=== PATIENT | female | born 1990 ===

== ENCOUNTER → 2023-03-30 | Outpatient (CLI) | payer BC ==
[2023-04-01 15:10] LABS: CHLAMYDIA TRACHOMATIS, NAA Negative (Negative)
== END | disposition home or self-care (01) ==
LOC: LAB SHORT 12:56 → LAB 12:56
PROVIDERS: Obstetrics & Gynecology
DX: Z11.3 Encounter for screening for infections with a predominantly sexual mode of transmission (principal)
CPT/HCPCS: 87491; 87591

== ENCOUNTER → 2023-09-11 | Outpatient (CLI) | payer BC | LOC: LAB 14:27 → LAB SHORT 14:27 | PROVIDERS: Family Medicine | DX: O09.93 Supervision of high risk pregnancy, unspecified, third trimester (principal); Z3A.00 Weeks of gestation of pregnancy not specified | CPT/HCPCS: 82731; 87081; 87150 ==

== ENCOUNTER 2023-09-29 03:29 | Inpatient (IN) | payer BC ==
[2023-09-29] VITALS (24 sets, daily range): BP systolic 106–143; BP diastolic 56–85
[~2023-09-29] VITALS: Ht 170.2 cm; Wt 143.1 kg
[2023-09-29 06:40] LABS: BASOPHILS ABSOLUTE AUTO 0.06 K/mm3 (0.00-0.23); BASOPHILS PERCENT AUTO 0 % (0-2); EOSINOPHILS PERCENT AUTO 1 % (0-6); Hematocrit 41.7 % (33.0-51.0); Hemoglobin 14.2 g/dL (11.5-16.0); IMMATURE GRAN ABSOLUTE AUTO 0.08 K/mm3 (0.00-0.10); IMMATURE GRAN PERCENT AUTO 1 % (0-1); LYMPHOCYTES ABSOLUTE AUTO 3.38 K/mm3 (0.84-5.20); LYMPHOCYTES PERCENT AUTO 24 % (21-46); MONOCYTES ABSOLUTE AUTO 0.83 K/mm3 (0.16-1.47); MONOCYTES PERCENT AUTO 6 % (4-13); Mean Corpuscular HGB 26.3 pg (26.0-34.0); Mean Corpuscular HGB Conc 34.1 g/dL (31.5-36.5); Mean Corpuscular Volume 77 fL (80-100); Mean Platelet Volume 9.6 fL (9.1-12.4); NEUTROPHILS ABSOLUTE AUTO 9.75 K/mm3 (1.96-9.15); NEUTROPHILS PERCENT AUTO 69 % (41-73); Platelet Count 319 K/mm3 (150-400); RDW Coefficient Variation 13.7 % (11.7-14.2); RDW Standard Deviation 38.4 fL (35.1-46.3); Red Blood Cell Count 5.39 M/mm3 (3.80-5.20)
[2023-09-29] MEDS ORDERED: ASPI81CH PO (07:42)
[2023-09-29] MEDS ORDERED: OMEP20ER PO (07:43)
[2023-09-29] MEDS ORDERED: ACET500 PO (07:43)
[2023-09-29] MEDS ORDERED: LAMO100 PO (07:44)
[2023-09-29 09:10] LABS: Albumin, Blood 2.3 g/dL (3.4-5.0); Albumin/Globulin Ratio 0.6 (0.8-1.8); Bilirubin, Total 0.3 mg/dL (0.1-1.0); Bun/Creatinine Ratio 12.7 (12.0-20.0); Calcium, Blood 8.7 mg/dL (8.5-10.1); Creatinine, Blood 0.55 mg/dL (0.40-1.00); Globulin, Blood 4.1 g/dL (2.2-4.0); Potassium, Blood 3.7 mmol/L (3.5-5.5); Total Protein, Blood 6.4 g/dL (6.4-8.2)
[2023-09-29 09:15] LABS: Creatinine, Urine Random 39.4 mg/dL (27.00-270.00); Protein, Urine Random 8.9 mg/dL (0.0-11.9); Protein/Creat Ratio, Ur Random 0.2
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
[2023-09-29 18:32] LABS: PCO2 Cord - Arterial 84.2 mmHg (40-50); PO2 Cord - Arterial 19.7 mmHg (16-20); pH Cord - Arterial 7.09 (7.28-7.35)
[2023-09-29 18:33] LABS: pH Umbilical Cord - Venous 7.15 (7.26-7.35)
[2023-09-29 18:34] LABS: PCO2 Cord - Venous 78.6 mmHg (40-50); PO2 Cord - Venous > 16 mmHg (28-32)
--- NOTE | 2023-09-29 18:51 | NUR ---
09/29/231850 Saundra Fenton VIGOROUS MALE BORN AT 1822 WITH APGARS 9/9. [address] DR AVALOS HAD DIFFICULTY WITH DELIVERING HEAD, HAD TO DO A SLIGHT T INCISION WITH VACUUM ATTEMPT WITH 3 PULLS AND 3 POP OFFS. CORD GASES GIVEN TO MILO PRESCOTT AND CORD BLOOD GIVEN TO NAVEED PAUL. DR AVALOS HAD BLADDER FILLED TO 200CC AND THEN DRAINED BACK INTO [place] BY ALL PAUL.
[2023-09-30 03:34] VITALS: BP 107/58
[2023-09-30 07:10] LABS: BASOPHILS ABSOLUTE AUTO 0.04 K/mm3 (0.00-0.23); BASOPHILS PERCENT AUTO 0 % (0-2); EOSINOPHILS ABSOLUTE AUTO 0.09 K/mm3 (0.00-0.68); EOSINOPHILS PERCENT AUTO 1 % (0-6); Hematocrit 33.4 % (33.0-51.0); Hemoglobin 11.3 g/dL (11.5-16.0); IMMATURE GRAN ABSOLUTE AUTO 0.07 K/mm3 (0.00-0.10); IMMATURE GRAN PERCENT AUTO 1 % (0-1); LYMPHOCYTES PERCENT AUTO 23 % (21-46); MONOCYTES ABSOLUTE AUTO 0.71 K/mm3 (0.16-1.47); MONOCYTES PERCENT AUTO 6 % (4-13); Mean Corpuscular HGB Conc 33.8 g/dL (31.5-36.5); Mean Corpuscular Volume 77 fL (80-100); Mean Platelet Volume 9.7 fL (9.1-12.4); NEUTROPHILS ABSOLUTE AUTO 8.59 K/mm3 (1.96-9.15); NEUTROPHILS PERCENT AUTO 70 % (41-73); Platelet Count 267 K/mm3 (150-400); RDW Coefficient Variation 13.7 % (11.7-14.2); RDW Standard Deviation 38.1 fL (35.1-46.3); Red Blood Cell Count 4.34 M/mm3 (3.80-5.20)
[2023-09-30 07:43] VITALS: BP 113/59
[2023-09-30 11:28] VITALS: BP 118/59
[2023-09-30 15:50] VITALS: BP 118/71
[2023-09-30 19:39] VITALS: BP 119/63
[2023-10-01 00:20] VITALS: BP 134/66
[2023-10-01 04:24] VITALS: BP 123/58
[2023-10-01 07:38] VITALS: BP 135/89
== END 2023-10-01 11:30 | disposition home or self-care (01) | DRG 787 ==
LOC: OBS 03:29 → BC 03:35 → OBS 05:48 → BC 05:52
PROVIDERS: Family Medicine; Obstetrics & Gynecology; ADMIT Obstetrics & Gynecology
PROC: 4A0HXCZ Measurement of Products of Conception, Cardiac Rate, External Approach (ICD-10-PCS; 2023-09-29)
PROC: 10D00Z1 Extraction of Products of Conception, Low, Open Approach (ICD-10-PCS; principal; 2023-09-29 18:00)
DX: O76 Abnormality in fetal heart rate and rhythm complicating labor and delivery (principal); D62 Acute posthemorrhagic anemia; O99.344 Other mental disorders complicating childbirth; F31.9 Bipolar disorder, unspecified; O99.334 Smoking (tobacco) complicating childbirth; F17.210 Nicotine dependence, cigarettes, uncomplicated; O43.893 Other placental disorders, third trimester; O99.214 Obesity complicating childbirth; O90.81 Anemia of the puerperium; Z3A.38 38 weeks gestation of pregnancy; Z37.0 Single live birth; Z28.39 Other underimmunization status; Z79.82 Long term (current) use of aspirin; R03.0 Elevated blood-pressure reading, without diagnosis of hypertension; O75.89 Other specified complications of labor and delivery
CPT/HCPCS: 36415; 59025; 76819; 80053; 81003; 82570; 82803; 84156; 85025; 86850; 86900; 86901; A9270; J0290; J0456; J0690; J1885; J2371; J2405; J2590; J2765; J3010; J7050; J7120

== ENCOUNTER → 2023-10-04 | Outpatient (CLI) | payer BC ==
[~2023-10-04] MED LIST: ACET500 PO; ASPI81CH PO; LAMO100 PO; OMEP20ER PO
[2023-10-04 16:11] LABS: Source, Urine Clean Catch
[2023-10-04 16:20] LABS: Appearance, Urine Clear (Clear); Bilirubin, Urine Neg (Neg); Blood, Urine 5+ (Neg); Color, Urine Yellow (P-Yellow); Glucose Qualitative, Urine Neg (Neg); Ketones, Urine Neg (Neg); Leukocyte Esterase, Urine Neg (Neg); Nitrite, Urine Neg (Neg); Protein, Urine Neg (Neg); Urobilinogen, Urine 1+ (Normal)
[2023-10-04 16:35] LABS: Bacteria Rare /hpf; Red Blood Cells, Urine 25-50 /hpf (0-2); Squamous Epithelial Cells Rare /hpf (Few); White Blood Cells, Urine 0-2 /hpf (0-5)
[2023-10-04 19:47] LABS: Creatinine, Urine Random 30.3 mg/dL (27.00-270.00); Protein, Urine Random 8.5 mg/dL (0.0-11.9); Protein/Creat Ratio, Ur Random 0.3
== END | disposition home or self-care (01) ==
LOC: LAB 15:17 → LAB SHORT 15:17
PROVIDERS: Obstetrics & Gynecology
DX: R39.11 Hesitancy of micturition (principal)
CPT/HCPCS: 81001; 82570; 84156